=== PATIENT | female | born 1980 | race Caucasian/White ===

== ENCOUNTER 2017-04-03 11:43 | Observation (INO) | payer MEDICAID ==
[2017-04-03] VITALS (17 sets, daily range): BP systolic 94–121; BP diastolic 60–77; PULSE 65–92; RESP 16–18; TEMP 97.6–98; O2SAT 94–99
[~2017-04-03] VITALS: Ht 167.6 cm; Wt 78.0 kg
[2017-04-03] MEDS ORDERED: SODIUM CHLOR 0.9% 1000 ML INJ 1,000 ML IV SCH (11:49)
[2017-04-03] MEDS ORDERED: FAMO1TAB37 PO (11:50)
[2017-04-03] MEDS ORDERED: PANTOPRAZOLE SODIUM 40 MG VIAL IVP ONE (12:00)
[2017-04-03] MEDS ORDERED: SODIUM CHLORIDE 0.9% FLUSH 10 ML FLUSH IV FLUSH PRN ×2 (12:00→15:30)
[2017-04-03] MEDS ORDERED: SODIUM CHLOR 0.9% 1000 ML INJ 1,000 ML IV ONE ×2 (12:00→13:30)
[2017-04-03] MEDS ORDERED: FAMOTIDINE 20 MG/2 ML VIAL IV PUSH ONE (12:00)
[2017-04-03] MEDS ORDERED: ONDANSETRON HCL 4 MG/2 ML VIAL IVP ONE (12:00)
[2017-04-03] MEDS ORDERED: MORPHINE SULFATE 4 MG/ML INJ IV PUSH ONE ×2 (12:00→13:30)
[2017-04-03 12:05] LABS: AUTOMATED NEUTROPHIL # 4.6 TH/MM3 (1.8-7.7); BASOPHIL % 0.5 % (0.0-2.0); EOSINOPHIL # 0.1 TH/MM3 (0-0.4); EOSINOPHIL % 0.9 % (0.0-4.0); HEMATOCRIT 41.5 % (35.0-46.0); HEMO FLAGS DIFF FINAL; LYMPH % 34.4 % (9.0-44.0); LYMPHOCYTE # 2.8 TH/MM3 (1.0-4.8); MEAN CELL VOLUME 91.8 FL (80.0-100.0); MEAN CORPUSCULAR HEMOGLOBIN 30.6 PG (27.0-34.0); MEAN CORPUSCULAR HGB CONC 33.4 % (32.0-36.0); MONO % 6.8 % (0.0-8.0); NEUT % 57.4 % (16.0-70.0); PLATELET COUNT 287 TH/MM3 (150-450); RED BLOOD COUNT 4.53 MIL/MM3 (4.00-5.30); WHITE BLOOD COUNT 8.1 TH/MM3 (4.0-11.0)
[2017-04-03 12:24] LABS: ALT (GPT) 31 U/L (10-53); ANION GAP 8 MEQ/L (5-15); APTT (PATIENT) 28.8 SEC (24.3-30.1); AST (GOT) 18 U/L (15-37); BLOOD UREA NITROGEN 16 MG/DL (7-18); CHLORIDE 108 MEQ/L (98-107); GLOMERULAR FILTRATION RATE 74 ML/MIN (>89); MAGNESIUM 2.3 MG/DL (1.5-2.5); POTASSIUM 3.8 MEQ/L (3.5-5.1); PROTHROMBIN TIME - PATIENT 11.1 SEC (9.8-11.6); SODIUM (NA) 140 MEQ/L (136-145)
[2017-04-03 12:29] LABS: ALKALINE PHOSPHATASE 72 U/L (45-117); CREATINE KINASE 112 U/L (26-192); TOTAL BILIRUBIN ADULT 0.2 MG/DL (0.2-1.0)
[2017-04-03] MEDS ORDERED: IOHEXOL 350 MG/ML 10 ML VIAL (for RAD DIAG) IVCONTRAST ONE (12:31)
[2017-04-03 12:41] LABS: CKMB 1.3 NG/ML (0.5-3.6)
--- NOTE | 2017-04-03 12:41 | RADRPT ---
EXAM DATE/TIME: 04/03/2017 12:16 [facility] COMPARISON: No previous studies available for comparison. INDICATIONS : Chest pain. MEDICAL HISTORY : None. SURGICAL HISTORY : None. ENCOUNTER: Initial ACUITY: 1 day PAIN SCORE: 8/10 LOCATION: Bilateral chest FINDINGS: A single view of the chest demonstrates the lungs to be symmetrically aerated without evidence of mas s, infiltrate or effusion. The cardiomediastinal contours are unremarkable. Osseous structures are intact. CONCLUSION: No acute disease. Enrrique Goncalves MD on April 03, 2017 at 12:38 Board Certified Radiologist. This report was verified electronically.
--- NOTE | 2017-04-03 13:02 | PD ---
HPI Chief Complaint: Chest Pain Time Seen by Provider: 11:48 Travel History International Travel<30 days: No Contact w/Intl Traveler<30days: No Traveled to known affect area: No History of Present Illness HPI Patient is a 36year-old female who presents to emergency room complaints of chest pain. Patient reports that chest began while at work today, reports that she initially that the chest pain was related to GERD, she did take a Pepcid without any relief of symptoms. Reports that shortly thereafter, patient began to have pains to her left chest which radiates to her left neck and down her left shoulder. Patient became tachycardic, dizzy, and short of breath. Patient was brought down to the ER for evaluation. PFSH Past Medical History Diminished Hearing: No Gastrointestinal Disorders: Yes GERD: Yes Kidney Stones: Yes Tetanus Vaccination: > 5 Years Influenza Vaccination: Yes ?: Not LMP: 03/27/17 : 3 Para: 2 Past Surgical History Section: Yes (X 1) Gynecologic Surgery: Yes (C- SECTION) Social History Alcohol Use: Yes (RARE) Tobacco Use: Yes Substance Use: No (PT DENIES ) Allergies-Medications (Allergen,Severity, Reaction): Coded Allergies: Penicillins (Verified Allergy, Intermediate, Hives, 04/03/17) erythromycin base (Verified Allergy, Unknown, HIVES, 04/03/17) hydromorphone (Verified Adverse Reaction, Severe, Nausea/Vomiting, ) Reported Meds & Prescriptions Reported Meds & Active Scripts Active Reported Pepcid (Famotidine) 20 Mg Tab 20 Mg PO DAILY Review of Systems General / Constitutional: No: Fever Eyes: No: Visual changes HENT: No: Headaches Cardiovascular: Positive: Chest Pain or Discomfort, Tachycardia Respiratory: Positive: Shortness of Breath Gastrointestinal: No: Abdominal Pain Genitourinary: No: Dysuria Musculoskeletal: No: Pain Skin: No Rash Neurologic: No: Weakness Psychiatric: No: Depression Endocrine: No: Polydipsia Hematologic/Lymphatic: No: Easy Bruising Physical Exam Narrative GENERAL: moderate distress SKIN: Focused skin assessment warm/dry. HEAD: Atraumatic. Normocephalic. EYES: Pupils equal and round. No scleral icterus. No injection or drainage. ENT: No nasal bleeding or discharge. Mucous membranes pink and moist. NECK: Trachea midline. No JVD. CARDIOVASCULAR: Tachycardia. No murmur appreciated. RESPIRATORY: No accessory muscle use. Clear to auscultation. Breath sounds equal bilaterally. GASTROINTESTINAL: Abdomen soft, non-tender, nondistended. Hepatic and splenic margins not palpable. MUSCULOSKELETAL: No obvious deformities. No clubbing. No cyanosis. No edema. NEUROLOGICAL: Awake and alert. No obvious cranial nerve deficits. Motor grossly within normal limits. Normal speech. PSYCHIATRIC: Anxious mood and affect; insight and judgment normal. Data Data Last Documented VS Vital Signs Date Time Temp Pulse Resp B/P (MAP) Pulse Ox O2 Delivery O2 Flow Rate FiO2 04/03/17 12:44 78 16 100/68 (79) 99 Room Air 04/03/17 11:46 97.8 Orders Orders Electrocardiogram (04/03/17 11:48) Ckmb (Isoenzyme) Profile (04/03/17 11:48) Complete Blood Count With Diff (04/03/17 11:48) Comprehensive Metabolic Panel (04/03/17 11:48) Magnesium (Mg) (04/03/17 11:48) Prothrombin Time / Inr (Pt) (04/03/17 11:48) Act Partial Throm Time (Ptt) (04/03/17 11:48) Troponin I (04/03/17 11:48) Lipase (04/03/17 11:48) Chest, Single Ap (04/03/17 11:48) Ecg Monitoring (04/03/17 11:48) Bilateral Bp Monitoring (04/03/17 11:48) Iv Access Insert/Monitor (04/03/17 11:48) Oximetry (04/03/17 11:48) Cta Thor Abd Aorta W Iv C W3d (04/03/17 11:48) Thyroid Stimulating Hormone (04/03/17 11:49) Sodium Chlor 0.9% 1000 Ml Inj (Ns 1000 M (04/03/17 12:00) Morphine Inj (Morphine Inj) (04/03/17 12:00) Ondansetron Inj (Zofran Inj) (04/03/17 12:00) Pantoprazole Inj (Protonix Inj) (04/03/17 12:00) Sodium Chlor 0.9% 1000 Ml Inj (Ns 1000 M (04/03/17 11:49) Sodium Chloride 0.9% Flush (Ns Flush) (04/03/17 12:00) Famotidine Inj (Pepcid Inj) (04/03/17 12:00) Ed Urine Pregnancytest Poc (04/03/17 11:53) I-Stat Creatinine (04/03/17 11:54) CKMB (04/03/17 11:53) CKMB% (04/03/17 11:53) Iohexol 350 Inj (Omnipaque 350 Inj) (04/03/17 12:31) Electrocardiogram (04/03/17 ) Sodium Chlor 0.9% 1000 Ml Inj (Ns 1000 M (04/03/17 13:30) Morphine Inj (Morphine Inj) (04/03/17 13:30) Admit Order (Ed Use Only) (04/03/17 13:18) Labs Laboratory Tests Test 04/03/17 11:53 White Blood Count 8.1 TH/MM3 Red Blood Count 4.53 MIL/MM3 Hemoglobin 13.9 GM/DL Hematocrit 41.5 % Mean Corpuscular Volume 91.8 FL Mean Corpuscular Hemoglobin 30.6 PG Mean Corpuscular Hemoglobin Concent 33.4 % Red Cell Distribution Width 14.0 % Platelet Count 287 TH/MM3 Mean Platelet Volume 9.0 FL Neutrophils (%) (Auto) 57.4 % Lymphocytes (%) (Auto) 34.4 % Monocytes (%) (Auto) 6.8 % Eosinophils (%) (Auto) 0.9 % Basophils (%) (Auto) 0.5 % Neutrophils # (Auto) 4.6 TH/MM3 Lymphocytes # (Auto) 2.8 TH/MM3 Monocytes # (Auto) 0.6 TH/MM3 Eosinophils # (Auto) 0.1 TH/MM3 Basophils # (Auto) 0.0 TH/MM3 CBC Comment DIFF FINAL Differential Comment Prothrombin Time 11.1 SEC Prothromb Time International Ratio 1.0 RATIO Activated Partial Thromboplast Time 28.8 SEC Blood Urea Nitrogen 16 MG/DL Creatinine 0.86 MG/DL Random Glucose 72 MG/DL Total Protein 7.5 GM/DL Albumin 4.0 GM/DL Calcium Level 9.0 MG/DL Magnesium Level 2.3 MG/DL Alkaline Phosphatase 72 U/L Aspartate Amino Transf (AST/SGOT) 18 U/L Alanine Aminotransferase (ALT/SGPT) 31 U/L Total Bilirubin 0.2 MG/DL Sodium Level 140 MEQ/L Potassium Level 3.8 MEQ/L Chloride Level 108 MEQ/L Carbon Dioxide Level 24.0 MEQ/L Anion Gap 8 MEQ/L Estimat Glomerular Filtration Rate 74 ML/MIN Total Creatine Kinase 112 U/L Creatine Kinase MB 1.3 NG/ML Troponin I LESS THAN 0.02 NG/ML Lipase 104 U/L MDM Medical Decision Making Medical Screen Exam Complete: Yes Emergency Medical Condition: Yes Medical Record Reviewed: Yes Interpretation(s) EKG at 1149: NSR at 79bpm, qt/qtc: 345/379, no acute st or t wave changes Vital Signs Date Time Temp Pulse Resp B/P (MAP) Pulse Ox O2 Delivery O2 Flow Rate FiO2 04/03/17 12:44 78 16 100/68 (79) 99 Room Air 04/03/17 12:09 17 04/03/17 12:00 92 18 116/71 (86) 99 Room Air 112/69 (83) 04/03/17 11:50 18 99 Room Air 04/03/17 11:47 89 18 99 Room Air 04/03/17 11:46 97.8 92 17 116/71 (86) 99 Differential Diagnosis Differential includes ACS, arrhythmia, aortic dissection, PE, GERD, electrolyte abnormality Narrative Course Patient is a 36-year-old female who presents to emergency room complaints of chest pain. 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 Patient reports that she is having a pressure like pain to her left chest which radiates her left jaw and to her left shoulder. Patient was immediately placed on a awake overnight monitor upon arrival to the emergency room. An EKG was obtained which showed no acute ST or T-wave changes. Lab work including cardiac enzymes , CBC, CMP ordered, x-ray of chest ordered. CTA ordered to rule out dissection Patient did receive a full dose of aspirin as well as 1 SL nitro while on the floor. She reports relief of symptoms with nitro but still has some pain to her left shoulder. IV morphine ordered for pain relief. Patient re-evaluated, patient with relief of pain after IV morphine. Vital Signs Date Time Temp Pulse Resp B/P (MAP) Pulse Ox O2 Delivery O2 Flow Rate FiO2 04/03/17 12:44 78 16 100/68 (79) 99 Room Air 04/03/17 12:09 17 04/03/17 12:00 92 18 116/71 (86) 99 Room Air 112/69 (83) 04/03/17 11:50 18 99 Room Air 04/03/17 11:47 89 18 99 Room Air 04/03/17 11:46 97.8 92 17 116/71 (86) 99 Laboratory Tests Test 04/03/17 11:53 White Blood Count 8.1 TH/MM3 (4.0-11.0) Red Blood Count 4.53 MIL/MM3 (4.00-5.30) Hemoglobin 13.9 GM/DL (11.6-15.3) Hematocrit 41.5 % (35.0-46.0) Mean Corpuscular Volume 91.8 FL (80.0-100.0) Mean Corpuscular Hemoglobin 30.6 PG (27.0-34.0) Mean Corpuscular Hemoglobin Concent 33.4 % (32.0-36.0) Red Cell Distribution Width 14.0 % (11.6-17.2) Platelet Count 287 TH/MM3 (150-450) Mean Platelet Volume 9.0 FL (7.0-11.0) Neutrophils (%) (Auto) 57.4 % (16.0-70.0) Lymphocytes (%) (Auto) 34.4 % (9.0-44.0) Monocytes (%) (Auto) 6.8 % (0.0-8.0) Eosinophils (%) (Auto) 0.9 % (0.0-4.0) Basophils (%) (Auto) 0.5 % (0.0-2.0) Neutrophils # (Auto) 4.6 TH/MM3 (1.8-7.7) Lymphocytes # (Auto) 2.8 TH/MM3 (1.0-4.8) Monocytes # (Auto) 0.6 TH/MM3 (0-0.9) Eosinophils # (Auto) 0.1 TH/MM3 (0-0.4) Basophils # (Auto) 0.0 TH/MM3 (0-0.2) CBC Comment DIFF FINAL Differential Comment Prothrombin Time 11.1 SEC (9.8-11.6) Prothromb Time International Ratio 1.0 RATIO Activated Partial Thromboplast Time 28.8 SEC (24.3-30.1) Blood Urea Nitrogen 16 MG/DL (7-18) Creatinine 0.86 MG/DL (0.50-1.00) Random Glucose 72 MG/DL (74-106) Total Protein 7.5 GM/DL (6.4-8.2) Albumin 4.0 GM/DL (3.4-5.0) Calcium Level 9.0 MG/DL (8.5-10.1) Magnesium Level 2.3 MG/DL (1.5-2.5) Alkaline Phosphatase 72 U/L (45-117) Aspartate Amino Transf (AST/SGOT) 18 U/L (15-37) Alanine Aminotransferase (ALT/SGPT) 31 U/L (10-53) Total Bilirubin 0.2 MG/DL (0.2-1.0) Sodium Level 140 MEQ/L (136-145) Potassium Level 3.8 MEQ/L (3.5-5.1) Chloride Level 108 MEQ/L (98-107) Carbon Dioxide Level 24.0 MEQ/L (21.0-32.0) Anion Gap 8 MEQ/L (5-15) Estimat Glomerular Filtration Rate 74 ML/MIN (>89) Total Creatine Kinase 112 U/L (26-192) Creatine Kinase MB 1.3 NG/ML (0.5-3.6) Troponin I LESS THAN 0.02 NG/ML Lipase 104 U/L (73-393) Last Impressions Chest X-Ray 04/03/17 1148 Signed Impressions: Service Date/Time: March 12:16 - CONCLUSION: No acute disease. Enrrique Goncalves MD Diagnosis Primary Impression: Chest pain Jo Bell DO Apr 03, 2017 13:02
--- NOTE | 2017-04-03 13:08 | RADRPT ---
EXAM DATE/TIME: 04/03/2017 12:21 [facility] COMPARISON: No previous studies available for comparison. INDICATIONS : Chest pain with dizziness. IV CONTRAST: 70 cc Omnipaque 350 (iohexol) IV RADIATION DOSE: 10.81 CTDIvol (mGy) MEDICAL HISTORY : None SURGICAL HISTORY : None. ENCOUNTER: Initial ACUITY: 1 day PAIN SCALE: 5/10 LOCATION: chest TECHNIQUE: Volumetric scanning was performed using a multi-row detector CT scanner. The data was post processed with a variety of visualization algorithms including full volume maximum intensity projection, multi -planar sliding thin slab reformation, curved planar reformation, and surface rendering techniques. Using automated exposure control and adjustment of the mA and/or kV according to patient size, radiat ion dose was kept as low as reasonably achievable to obtain optimal diagnostic quality images. DICOM format image data is available electronically for review and comparison. FINDINGS: LUNGS: There is no consolidation or pneumothorax. No concerning pulmonary nodule is visualized. No pleural fluid is present. MEDIASTINUM: Densely calcified right hilar nodes. No abnormally enlarged lymph nodes by CT criteria. No axillary o r hilar abnormalities are identified. The pulmonary arteries are not sufficiently opacified but appea r patent very centrally. ABDOMEN: Evaluation is limited due to arterial phase technique. The liver and spleen are free of focal defects . The gallbladder and pancreas demonstrate no abnormality. The adrenal glands are normal. The kidneys demonstrate no evidence of solid renal mass or hydronephrosis. No free fluid or abdominal masses are identified. No para-aortic adenopathy is seen. Mild sigmoid diverticulosis. Bowel otherwise appears grossly unremarkable. PELVIS: No evidence of free fluid or pelvic mass. No abnormally enlarged inguinal or retroperitoneal lymph no piyush are present. The bladder is unremarkable. Uterus and adnexa are within normal limits given patien t's age. THORACIC AORTA: The thoracic aortic root is normal with normal branching of the great vessels. There is no evidence of aneurysm or dissection. ABDOMINAL AORTA: The aorta is normal in caliber without aneurysm or dissection. The renal arteries are patent bilater ally. The proximal celiac and superior mesenteric arteries are patent and normal in diameter. PELVIC VESSELS: The internal iliac and external iliac vessels are patent without aneurysm or stenosis. CONCLUSION: 1. Unremarkable CTA examination without evidence for aortic aneurysm or dissection as questioned. 2. The very central pulmonary arteries are patent. Segmental branches are inadequately opacified for evaluation. 3. Otherwise, no acute findings to explain patient's symptoms. Cornell Plasencia MD on April 03, 2017 at 13:00 Board Certified Radiologist. This report was verified electronically.
[2017-04-03] MEDS ORDERED: KETOROLAC TROMETHAMINE 30 MG/ML (IVP) VIAL IV PUSH ONE (13:45)
--- NOTE | 2017-04-03 14:13 | HHI.HP ---
HPI Service Family Medicine Primary Care Physician Unknown Admission Diagnosis chest pain Diagnoses: International Travel<30 Days: No Contact w/Intl Traveler<30days: No Known Affected Area: No History of Present Illness 36 y/o F w/hx of heart burn presenting with chest pain. Reports that she has a hx of GERD that constantly bothers her. Has been having a pressure/left-sided chest pain for the last 3 weeks. Did not occur at a particular time of day or setting. Started having chest pain this AM and thought she was having normal heartburn this AM, so she took Pepcid for relief but it did not work and an hour later, reports she a pain described as pressure in her left chest that radiates to left shoulder and neck associated with dizziness, SOB, and diaphoresis. Took nitro sublingual, had a little relief but experienced a headache instantaneously. Patient works in the [employer] and quickly came to the ER for work-up. Has never had a chest pain similar to this episode in the past. Currently feeling pressure, states that morphine takes edge off. Patient was questioned about hydromorphone allergy ; responded that it causes intractable vomiting. States she tolerates morphine well. Does not have a regular doctor. (Miranda Gary MD R1) Review of Systems Constitutional: COMPLAINS OF: Fatigue, Dizziness, DENIES: Diaphoretic episodes , Change in appetite Endocrine: DENIES: Heat/cold intolerance, Polyuria Eyes: DENIES: Vision loss, Photosensitivity Ears, nose, mouth, throat: DENIES: Tinnitus, Hearing loss Respiratory: DENIES: Cough, Shortness of breath Cardiovascular: DENIES: Palpitations, Dyspnea on Exertion Gastrointestinal: COMPLAINS OF: Abdominal pain, Constipation, DENIES: Diarrhea Genitourinary: DENIES: Urinary frequency, Urgency Musculoskeletal: DENIES: Muscle aches, Stiffness Integumentary: DENIES: Abnormal pigmentation, Rash Hematologic/lymphatic: DENIES: Lymphadenopathy Immunologic/allergic: DENIES: Urticaria Neurologic: DENIES: Headache, Speech Problems Psychiatric: DENIES: Mood changes (Miranda Gary MD R1) Past Family Social History Past Medical History Heartburn Past Surgical History x1 - 2015 (Miranda Gary MD R1) Allergies: Coded Allergies: Penicillins (Verified Allergy, Intermediate, Hives, 04/03/17) erythromycin base (Verified Allergy, Unknown, HIVES, 04/03/17) hydromorphone (Verified Adverse Reaction, Severe, Nausea/Vomiting, ) Family History Mom: RV enlargement, smoker, obesity Dad : Crohn's disease, CABG x 5 Social History Smokes 20 pack years, ETOH a couple times/month, no illicit/recreational drug use (Miranda Gary MD R1) Physical Exam Vital Signs Vital Signs Date Time Temp Pulse Resp B/P (MAP) Pulse Ox O2 Delivery O2 Flow Rate FiO2 04/03/17 13:35 17 04/03/17 13:30 97.8 78 16 105/62 (76) 99 04/03/17 12:44 78 16 100/68 (79) 99 Room Air 04/03/17 12:09 17 04/03/17 12:00 92 18 116/71 (86) 99 Room Air 112/69 (83) 04/03/17 11:50 18 99 Room Air 04/03/17 11:47 89 18 99 Room Air 04/03/17 11:46 97.8 92 17 116/71 (86) 99 Physical Exam GENERAL: This is a well-nourished, well-developed patient, in no apparent distress. SKIN: No rashes, ecchymoses or lesions. Cool and dry. HEAD: Atraumatic. Normocephalic. EYES: Pupils equal round and reactive. Extraocular motions intact. ENT: Throat without erythema, tonsillar hypertrophy or exudate. Uvula midline. Airway patent. NECK: Trachea midline. No JVD or lymphadenopathy. CARDIOVASCULAR: Regular rate and rhythm without murmurs, gallops, or rubs. RESPIRATORY: Clear to auscultation. Breath sounds equal bilaterally. GASTROINTESTINAL: Abdomen soft, non-tender except for lower pelvis (patient attributes to ovulation), nondistended. MUSCULOSKELETAL: Extremities without clubbing, cyanosis, or edema. No joint tenderness, effusion, or edema noted. No calf tenderness. NEUROLOGICAL: Awake and alert. Motor and sensory grossly within normal limits. Normal speech. Laboratory Laboratory Tests Test 04/03/17 11:53 White Blood Count 8.1 Red Blood Count 4.53 Hemoglobin 13.9 Hematocrit 41.5 Mean Corpuscular Volume 91.8 Mean Corpuscular Hemoglobin 30.6 Mean Corpuscular Hemoglobin Concent 33.4 Red Cell Distribution Width 14.0 Platelet Count 287 Mean Platelet Volume 9.0 Neutrophils (%) (Auto) 57.4 Lymphocytes (%) (Auto) 34.4 Monocytes (%) (Auto) 6.8 Eosinophils (%) (Auto) 0.9 Basophils (%) (Auto) 0.5 Neutrophils # (Auto) 4.6 Lymphocytes # (Auto) 2.8 Monocytes # (Auto) 0.6 Eosinophils # (Auto) 0.1 Basophils # (Auto) 0.0 CBC Comment DIFF FINAL Differential Comment Prothrombin Time 11.1 Prothromb Time International Ratio 1.0 Activated Partial Thromboplast Time 28.8 Blood Urea Nitrogen 16 Creatinine 0.86 Random Glucose 72 Total Protein 7.5 Albumin 4.0 Calcium Level 9.0 Magnesium Level 2.3 Alkaline Phosphatase 72 Aspartate Amino Transf (AST/SGOT) 18 Alanine Aminotransferase (ALT/SGPT) 31 Total Bilirubin 0.2 Sodium Level 140 Potassium Level 3.8 Chloride Level 108 Carbon Dioxide Level 24.0 Anion Gap 8 Estimat Glomerular Filtration Rate 74 Total Creatine Kinase 112 Creatine Kinase MB 1.3 Troponin I LESS THAN 0.02 Lipase 104 (Miranda Gary MD R1) Result Diagram: 04/03/17 1153 04/03/17 1153 Caprini VTE Risk Assessment Caprini VTE Risk Assessment: No/Low Risk (score <= 1) Caprini Risk Assessment Model Point Value = 1 Point Value = 2 Point Value = 3 Point Value = 5 Age 41-60 Minor surgery BMI > 25 kg/m2 Swollen legs Varicose veins or History of unexplained or recurrent spontaneous Oral contraceptives or hormone replacement Sepsis (< 1 month) Serious lung disease, including pneumonia (< 1 month) Abnormal pulmonary function Acute myocardial infarction Congestive heart failure (< 1 month) History of inflammatory bowel disease Medical patient at bed rest Age 61-74 Arthroscopic surgery Major open surgery (> 45 min) Laparoscopic surgery (> 45 min) Malignancy Confined to bed (> 72 hours) Immobilizing plaster cast Central venous access Age >= 75 History of VTE Family history of VTE Factor V Leiden Prothrombin [id number] Lupus anticoagulant Anticardiolipin antibodies Elevated serum homocysteine Heparin-induced thrombocytopenia Other congenital or acquired thrombophilia Stroke (< 1 month) Elective arthroplasty Hip, pelvis, or leg fracture Acute spinal cord injury (< 1 month) Prophylaxis Regimen Total Risk Factor Score Risk Level Prophylaxis Regimen 0-1 Low Early ambulation 2 Moderate Order ONE of the following: *Sequential Compression Device (SCD) *Heparin 5000 units SQ BID 3-4 Higher Order ONE of the following medications: *Heparin 5000 units SQ TID *Enoxaparin/Lovenox 40 mg SQ daily (WT < 150 kg, CrCl > 30 mL/min) *Enoxaparin/Lovenox 30 mg SQ daily (WT < 150 kg, CrCl > 10-29 mL/min) *Enoxaparin/Lovenox 30 mg SQ BID (WT < 150 kg, CrCl > 30 mL/min) AND/OR *Sequential Compression Device (SCD) 5 or more Highest Order ONE of the following medications: *Heparin 5000 units SQ TID (Preferred with Epidurals) *Enoxaparin/Lovenox 40 mg SQ daily (WT < 150 kg, CrCl > 30 mL/min) *Enoxaparin/Lovenox 30 mg SQ daily (WT < 150 kg, CrCl > 10-29 mL/min) *Enoxaparin/Lovenox 30 mg SQ BID (WT < 150 kg, CrCl > 30 mL/min) AND *Sequential Compression Device (SCD) (Miranda Gary MD R1) Assessment and Plan Assessment and Plan Patient is a 36 y/o F w/hx of GERD presenting with chest pain. EKG x2 wnl, troponins negative, CTA aorta was not able to accurately capture segmental arteries of aorta to r/o thrombus. Not likely [place] or aortic dissection. Will observe her on cardiac tele overnight and r/o PE. Code Status DNI, ok with ACLS protocol Discussed Condition With Dr. Mcfadden (Miranda Gary MD R1) Attending Attestation THIS CASE WAS DISCUSSED WITH THE RESIDENT PHYSICIAN. I HAVE REVIEWED THE RECORD AND AGREE WITH THE ABOVE NOTE AND PLAN OF CARE WAS DISCUSSED. I HAVE AUTHORIZED THE ORDER FOR PLACEMENT IN OUT-PATIENT OBSERVATION STATUS. (Angela Rooney MD) Problem List: (1) Chest pain ICD Codes: R07.9 - Chest pain, unspecified Status: Acute Plan: Troponins neg, EKG x2 nl, -order CKMB - D-dimer to r/o PE - cardiac tele - trend ECGs today - morphine IV as needed for pain - ASA chew - HgbA1c, lipid profile (2) Heartburn ICD Codes: R12 - Heartburn Plan: Protonix 40 mg PO (3) FEN Plan: Fluids: NS IVF Nutrition: NPO Electrolytes: supp as needed DVT prophy: Lovenox and SCDs GI prophy: Protonix 40 mg PO (Miranda Gary MD R1) Miranda Gary MD R1 Apr 03, 2017 14:13 Angela Rooney MD Apr 03, 2017 17:34
[2017-04-03] MEDS: SODIUM CHLOR 0.9% 1000 ML INJ 1,000 ML IV SCH ×2 (14:20→22:40)
[2017-04-03] MEDS ORDERED: ACETAMINOPHEN 325 MG TAB PO PRN (14:30)
[2017-04-03] MEDS ORDERED: DEXTROSE 50% IN WATER 50 ML VIAL(D50) IV PUSH PRN (15:15)
[2017-04-03] MEDS ORDERED: ONDANSETRON HCL 4 MG/2 ML VIAL IVP PRN (15:30)
[2017-04-03] MEDS ORDERED: NALOXONE HCL 0.4 MG/ML AMP IV PUSH PRN (15:30)
[2017-04-03] MEDS ORDERED: MORPHINE SULFATE 4 MG/ML INJ IV PUSH PRN (16:00)
[2017-04-03] MEDS ORDERED: ENOXAPARIN SODIUM 40 MG/0.4 ML SYRINGE SQ SCH (16:00)
[2017-04-03 17:35] LABS: CREATINE KINASE 90 U/L (26-192)
[2017-04-03] MEDS: SODIUM CHLORIDE 0.9% FLUSH 10 ML FLUSH IV FLUSH SCH (21:00)
--- NOTE | 2017-04-03 21:21 | MB ---
cc: KEV HATHC MD DATE OF CONSULTATION 04/03/17 INDICATION Chest pain. 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 She was in her usual state of health until yesterday morning when she started developing her heartburn type symptoms. She does have heartburn on a regular basis, takes Pepcid at home. Earlier today, it became quite uncomfortable. She developed this substernal chest pressure associated with it. It actually got so bad that it radiated towards her jaw and her left shoulder arm. She was noted to be somewhat diaphoretic actually by the other nurses and she was moved into one of the room. She was given Pepcid and then transferred down to the emergency department. Also, she was given nitro then transferred down to the emergency department. Nitroglycerin started to relieve some of the discomfort. When she got down there they had done a CAT scan of the chest which was relatively unremarkable, gave her some IV fluids. Her symptoms are still somewhat present. She has this maybe 2/10 substernal pain. Electrocardiogram has been unremarkable. Initial troponin is negative. We are consulted for further recommendations. PAST MEDICAL HISTORY 1. Gastroesophageal reflux disease 2. . ALLERGIES PENICILLIN ERYTHROMYCIN HYDROMORPHONE FAMILY HISTORY Denies any family history of early coronary disease or sudden cardiac . SOCIAL HISTORY Smokes 20 pack years. Alcohol use a couple times a month. Denies illicit drug use. REVIEW OF SYSTEMS 12-point review of system was performed, negative unless otherwise noted in history of present illness. PHYSICAL EXAMINATION VITAL SIGNS: Pulse 91, blood pressure 102/75 mmHg. GENERAL: Alert and oriented x3 in no distress. HEENT: Pupils reactive to light and accommodation, extraocular movements are intact. No elevation in jugular venous distension. No thyromegaly or lymphadenopathy. No carotid bruits. LUNGS: Clear to auscultation bilaterally. CARDIAC: Regular rate and rhythm without murmurs, rubs or gallops. ABDOMEN: Nontender, nondistended. Good bowel sounds. No hepatosplenomegaly. EXTREMITIES: No clubbing, cyanosis or edema. Good peripheral pulses. NEUROLOGIC: Cranial nerves intact. Motor and sensory grossly intact. LABORATORY DATA WBC 8.1, hemoglobin is 13.9, platelet count 287, INR is one. Sodium 140, potassium 3.8, BUN 16, creatinine 2.86. Troponins negative x2. CARDIOLOGY STUDIES Electrocardiogram is sinus rhythm, no ischemic changes. ASSESSMENT 1. Chest pain. 2. History of gastroesophageal reflux disease. PLAN She had kind of initial insidious onset followed by worsening substernal pain. Symptoms sound pretty consistent with esophageal spasm and/or coronary spasm. Likely given that she works right on the cardiac intensive care unit, immediate electrocardiogram was obtained which showed no ST-segment deviation. This with ongoing symptoms would suggest not coronary spasm. Given her age and lack of risk factors it is clearly not obstructive coronary disease. She had a CT of the chest which did not show any evidence for dissection or pulmonary embolism. She did have some relief with nitroglycerin. We will continue to trend troponin. If it comes back negative, I think we can feel fairly sure this is GI in etiology, then she may consider an outpatient EGD. MD DRE Avila/ /6:35 PM /8:56 PM
[2017-04-03 23:46] LABS: HDL CHOLESTEROL 30.1 MG/DL (40.0-60.0); LDL CHOLESTEROL 58 MG/DL (0-99)
[2017-04-03 23:56] LABS: CREATINE KINASE 85 U/L (26-192)
[2017-04-04] VITALS (9 sets, daily range): BP systolic 103; BP diastolic 63; PULSE 65–78; RESP 18; TEMP 98.2; O2SAT 98
[2017-04-04] MEDS: SODIUM CHLOR 0.9% 1000 ML INJ 1,000 ML IV SCH (05:17)
[2017-04-04 06:53] LABS: AUTOMATED NEUTROPHIL # 4.1 TH/MM3 (1.8-7.7); BASOPHIL % 0.4 % (0.0-2.0); EOSINOPHIL # 0.2 TH/MM3 (0-0.4); EOSINOPHIL % 2.4 % (0.0-4.0); HEMATOCRIT 37.1 % (35.0-46.0); HEMO FLAGS DIFF FINAL; LYMPH % 38.9 % (9.0-44.0); LYMPHOCYTE # 3.1 TH/MM3 (1.0-4.8); MEAN CELL VOLUME 91.7 FL (80.0-100.0); MEAN CORPUSCULAR HEMOGLOBIN 31.1 PG (27.0-34.0); MEAN CORPUSCULAR HGB CONC 33.9 % (32.0-36.0); MONO % 6.6 % (0.0-8.0); NEUT % 51.7 % (16.0-70.0); PLATELET COUNT 231 TH/MM3 (150-450); RED BLOOD COUNT 4.04 MIL/MM3 (4.00-5.30); RED CELL DISTRIBUTION WIDTH 14.2 % (11.6-17.2); WHITE BLOOD COUNT 7.9 TH/MM3 (4.0-11.0)
[2017-04-04 07:36] LABS: POTASSIUM 3.6 MEQ/L (3.5-5.1)
[2017-04-04] MEDS: SODIUM CHLORIDE 0.9% FLUSH 10 ML FLUSH IV FLUSH SCH (07:47)
--- NOTE | 2017-04-04 08:26 | HHI.FPPN ---
Problem Problem List: (1) Chest pain (2) Heartburn Subjective Subjective 36 y/o F w/hx of heart burn presenting with chest pain to the ED last night. History significant for GERD and tobacco. Started having chest pain the morning of admission and thought she was having normal heartburn, took Pepcid for relief but it did not work and an hour later, reports she a pain described as pressure in her left chest that radiated to left shoulder and neck associated with dizziness, SOB, and diaphoresis. Took nitro sublingual, had a little relief but experienced a headache instantaneously. Overnight labs -- troponin normal and EKG good -- cards evaluated the patient and did not feel this was cardiovascular in nature. Pt with minimal risk for CAD. Pt with h/o GERD and was started on PPI on admission and she feels like this could have been an esophageal spasm and all her symptoms resolved overnight. Review of Systems Constitutional: COMPLAINS OF: Fatigue, Dizziness, DENIES: Diaphoretic episodes , Change in appetite Endocrine: DENIES: Heat/cold intolerance, Polyuria Eyes: DENIES: Vision loss, Photosensitivity Ears, nose, mouth, throat: DENIES: Tinnitus, Hearing loss Respiratory: DENIES: Cough, Shortness of breath Cardiovascular: DENIES: Palpitations, Dyspnea on Exertion Gastrointestinal: COMPLAINS OF: Abdominal pain, Constipation, DENIES: Diarrhea Genitourinary: DENIES: Urinary frequency, Urgency Musculoskeletal: DENIES: Muscle aches, Stiffness Integumentary: DENIES: Abnormal pigmentation, Rash Hematologic/lymphatic: DENIES: Lymphadenopathy Immunologic/allergic: DENIES: Urticaria Neurologic: DENIES: Headache, Speech Problems Psychiatric: DENIES: Mood changes Past Family Social History Past Medical History Heartburn Past Surgical History x1 - 2015 Allergies: Coded Allergies: Penicillins (Verified Allergy, Intermediate, Hives, 04/03/17) erythromycin base (Verified Allergy, Unknown, HIVES, 04/03/17) hydromorphone (Verified Adverse Reaction, Severe, Nausea/Vomiting, ) Family History Mom: RV enlargement, smoker, obesity Dad : Crohn's disease, CABG x 5 Social History Smokes 20 pack years, ETOH a couple times/month, no illicit/recreational drug use Hospital Objective Objective Laboratory Tests - Abnormals Test 04/03/17 11:53 04/03/17 16:12 04/03/17 22:39 04/04/17 05:35 Random Glucose 72 MG/DL Chloride Level 108 MEQ/L 111 MEQ/L Estimat Glomerular Filtration Rate 74 ML/MIN 79 ML/MIN Troponin I LESS THAN 0.02 NG/ML LESS THAN 0.02 NG/ML LESS THAN 0.02 NG/ML Cholesterol Level 112 MG/DL HDL Cholesterol 30.1 MG/DL Calcium Level 7.5 MG/DL Vital Signs 04/03/17 04/03/17 04/03/17 04/03/17 11:46 11:47 11:50 12:00 Temp 97.8 Pulse 92 89 92 Resp 17 18 18 18 B/P (MAP) 116/71 (86) 116/71 (86) 112/69 (83) Pulse Ox 99 99 99 99 O2 Delivery Room Air Room Air Room Air 04/03/17 04/03/17 04/03/17 04/03/17 12:09 12:44 13:30 13:35 Temp 97.8 Pulse 78 78 Resp 17 B/P (MAP) 100/68 (79) 105/62 (76) Pulse Ox 99 99 O2 Delivery Room Air 04/03/17 04/03/17 04/03/17 04/03/17 14:25 14:31 15:06 15:30 Temp 97.9 Pulse 76 74 77 Resp 16 16 B/P (MAP) 109/77 (88) 102/75 (84) Pulse Ox 100 99 99 FiO2 21 04/03/17 04/03/17 04/03/17 04/03/17 16:01 17:03 18:01 20:00 Pulse 80 82 91 80 04/03/17 04/03/17 04/03/17 04/03/17 20:00 21:00 22:00 23:00 Temp 97.6 Pulse 84 71 65 70 Resp 18 B/P (MAP) 121/75 (90) Pulse Ox 98 04/03/17 04/03/17 04/04/17 04/04/17 23:00 23:49 00:00 01:00 Temp 98.0 Pulse 79 65 68 Resp 18 B/P (MAP) 94/60 (71) Pulse Ox 98 94 04/04/17 04/04/17 04/04/17 04/04/17 02:00 03:00 03:13 04:00 Pulse 78 70 73 72 Resp 18 04/04/17 04/04/17 05:00 06:00 Pulse 70 67 Physical exam O. CONSTITUTIONAL/GEN: normally nourished, in NAD. EYES: conjunctiva normal, PERRLA, EOMI. ENT: Mouth and pharynx normal. NECK: thyroid midline, carotids symmetrical. LUNGS: clear A-P, respiratory effort is normal. CARDIOVASCULAR: RR without murmur or gallop. No significant edema. GI/ABD: soft without masses, without organomegaly. : no CVA tenderness NEURO: No focal deficits. Gait is normal SKIN: color normal, no rashes noted. HEME/LYMPH: no bruising, petechia or significant adenopathy MUSC: back is normal in appearance. Extremities are normal in appearance. PSYCH/MENTAL STATUS: Alert and oriented x 3. Assessment Assessment: (1) Chest pain (2) Heartburn Assessment 36 year old female, smoker with h/o CP that does not appear to be cardiac in nature. IS doing well with resolution of her symptoms. Workup for cardiac chest pain was unrevealing PLAN PLAN 1. CP -- likely secondary to GI issues -- she was started on PPI and will continue this on d/c. Consider possible esophageal spasm. 2. GERD/GI -- continue PPI, rec lifestyle changes and fu with GI for further workup as outpatient. 3. Tobacco use -- counselled on quitting -- patient is precontemplative. DC today with fu with PCP and GI Patient was seen and dw the resident team -- Dr. Mcfadden, Dr. Gary, Dr. Cortes, Dr. Roxana Rooney,Angela Alegria MD Apr 04, 2017 08:26
--- NOTE | 2017-04-04 08:34 | PD.CARD.PN ---
Subjective Subjective Remarks no further CP no events Objective Medications Current Medications Medications (Trade) Dose Ordered Sig/Robert Route Start Time Stop Time Status Last Admin (NS Flush) 2 ml UNSCH PRN IV FLUSH 04/03/17 12:00 Sodium Chloride 1,000 ml @ 120 mls/hr Q8H20M IV 04/03/17 14:20 04/04/17 05:17 (NS Flush) 2 ml UNSCH PRN IV FLUSH 04/03/17 15:30 (NS Flush) 2 ml BID IV FLUSH 04/03/17 21:00 04/04/17 07:47 (Tylenol) 650 mg Q4H PRN PO 04/03/17 14:30 (Zofran Inj) 4 mg Q6H PRN IVP 04/03/17 15:30 04/03/17 17:06 (Lovenox Inj) 40 mg Q24H SQ 04/03/17 16:00 (Narcan Inj) 0.4 mg UNSCH PRN IV PUSH 04/03/17 15:30 (Protonix) 40 mg DAILY PO 04/04/17 09:00 04/04/17 07:47 (Morphine Inj) 4 mg Q3H PRN IV PUSH 04/03/17 16:00 04/03/17 17:06 (Aspirin Chew) 81 mg DAILY CHEW 04/04/17 09:00 04/04/17 07:47 (D50w (Vial) Inj) 50 ml UNSCH PRN IV PUSH 04/03/17 15:15 (Flu (Quadrivalent) Vaccine Inj) 0.5 ml ONCE ONCE IM 04/04/17 10:00 04/04/17 10:01 Vital Signs / I&O Vital Signs Date Time Temp Pulse Resp B/P (MAP) Pulse Ox O2 Delivery O2 Flow Rate FiO2 04/04/17 06:00 67 04/04/17 05:00 70 04/04/17 04:00 72 04/04/17 03:13 73 18 04/04/17 03:00 70 04/04/17 02:00 78 04/04/17 01:00 68 04/04/17 00:00 65 04/03/17 23:49 94 04/03/17 23:00 98.0 79 18 94/60 (71) 98 04/03/17 23:00 70 04/03/17 22:00 65 04/03/17 21:00 71 04/03/17 20:00 97.6 84 18 121/75 (90) 98 04/03/17 20:00 80 04/03/17 18:01 91 04/03/17 17:03 82 04/03/17 16:01 80 04/03/17 15:30 77 16 102/75 (84) 99 04/03/17 15:06 74 04/03/17 14:31 99 21 04/03/17 14:25 97.9 76 16 109/77 (88) 100 04/03/17 13:35 17 04/03/17 13:30 97.8 78 16 105/62 (76) 99 04/03/17 12:44 78 16 100/68 (79) 99 Room Air 04/03/17 12:09 17 04/03/17 12:00 92 18 116/71 (86) 99 Room Air 112/69 (83) 04/03/17 11:50 18 99 Room Air 04/03/17 11:47 89 18 99 Room Air 04/03/17 11:46 97.8 92 17 116/71 (86) 99 I/O 04/03/17 04/03/17 04/03/17 04/04/17 04/04/17 04/04/17 07:00 15:00 23:00 07:00 15:00 23:00 Intake Total 2000 ml 480 ml 240 ml Output Total 600 ml 500 ml Balance 2000 ml -120 ml -260 ml Intake Oral 480 ml 240 ml IV Total 2000 ml Output Urine Total 600 ml 500 ml # Bowel Movements 1 Physical Exam GENERAL: SKIN: Warm and dry. HEAD: Normocephalic. EYES: No scleral icterus. No injection or drainage. NECK: Supple, trachea midline. No JVD or lymphadenopathy. CARDIOVASCULAR: Regular rate and rhythm without murmurs, gallops, or rubs. RESPIRATORY: Breath sounds equal bilaterally. No accessory muscle use. GASTROINTESTINAL: Abdomen soft, non-tender, nondistended. MUSCULOSKELETAL: No cyanosis, or edema. BACK: Nontender without obvious deformity. No CVA tenderness. Laboratory Laboratory Tests Test 04/03/17 11:53 04/03/17 16:12 04/03/17 22:39 04/04/17 05:35 White Blood Count 8.1 TH/MM3 7.9 TH/MM3 Red Blood Count 4.53 MIL/MM3 4.04 MIL/MM3 Hemoglobin 13.9 GM/DL 12.6 GM/DL Hematocrit 41.5 % 37.1 % Mean Corpuscular Volume 91.8 FL 91.7 FL Mean Corpuscular Hemoglobin 30.6 PG 31.1 PG Mean Corpuscular Hemoglobin Concent 33.4 % 33.9 % Red Cell Distribution Width 14.0 % 14.2 % Platelet Count 287 TH/MM3 231 TH/MM3 Mean Platelet Volume 9.0 FL 9.8 FL Neutrophils (%) (Auto) 57.4 % 51.7 % Lymphocytes (%) (Auto) 34.4 % 38.9 % Monocytes (%) (Auto) 6.8 % 6.6 % Eosinophils (%) (Auto) 0.9 % 2.4 % Basophils (%) (Auto) 0.5 % 0.4 % Neutrophils # (Auto) 4.6 TH/MM3 4.1 TH/MM3 Lymphocytes # (Auto) 2.8 TH/MM3 3.1 TH/MM3 Monocytes # (Auto) 0.6 TH/MM3 0.5 TH/MM3 Eosinophils # (Auto) 0.1 TH/MM3 0.2 TH/MM3 Basophils # (Auto) 0.0 TH/MM3 0.0 TH/MM3 CBC Comment DIFF FINAL DIFF FINAL Differential Comment Prothrombin Time 11.1 SEC Prothromb Time International Ratio 1.0 RATIO Activated Partial Thromboplast Time 28.8 SEC Blood Urea Nitrogen 16 MG/DL 12 MG/DL Creatinine 0.86 MG/DL 0.81 MG/DL Random Glucose 72 MG/DL 98 MG/DL Total Protein 7.5 GM/DL Albumin 4.0 GM/DL Calcium Level 9.0 MG/DL 7.5 MG/DL Magnesium Level 2.3 MG/DL Alkaline Phosphatase 72 U/L Aspartate Amino Transf (AST/SGOT) 18 U/L Alanine Aminotransferase (ALT/SGPT) 31 U/L Total Bilirubin 0.2 MG/DL Sodium Level 140 MEQ/L 140 MEQ/L Potassium Level 3.8 MEQ/L 3.6 MEQ/L Chloride Level 108 MEQ/L 111 MEQ/L Carbon Dioxide Level 24.0 MEQ/L 23.0 MEQ/L Anion Gap 8 MEQ/L 6 MEQ/L Estimat Glomerular Filtration Rate 74 ML/MIN 79 ML/MIN Total Creatine Kinase 112 U/L 90 U/L 85 U/L Creatine Kinase MB 1.3 NG/ML Troponin I LESS THAN 0.02 NG/ML LESS THAN 0.02 NG/ML LESS THAN 0.02 NG/ML Lipase 104 U/L D-Dimer Quantitative (PE/DVT) 0.32 MG/L FEU Thyroid Stimulating Hormone 3rd Gen 2.550 uIU/ML Triglycerides Level 119 MG/DL Cholesterol Level 112 MG/DL LDL Cholesterol 58 MG/DL HDL Cholesterol 30.1 MG/DL Cholesterol/HDL Ratio 3.72 RATIO Imaging Last 24 hours Impressions Chest X-Ray 04/03/17 1148 Signed Impressions: Service Date/Time: March 12:16 - CONCLUSION: No acute disease. Enrrique Goncalves MD Aorta CTA 04/03/17 1148 Signed Impressions: Service Date/Time: March 12:21 - CONCLUSION: 1. Unremarkable CTA examination without evidence for aortic aneurysm or dissection as questioned. 2. The very central pulmonary arteries are patent. Segmental branches are inadequately opacified for evaluation. 3. Otherwise, no acute findings to explain patient's symptoms. Cornell Plasencia MD Assessment and Plan Assessment and Plan CP - suggestive of esophageal spasm relieved with NTG. no EKG changes. No troponin elevation. symptom free now OK for DC FU PCP for possible EGD. ok to DC with SL NTG PRN for severe spasm will sign off if recurrence, outpatient ETT Sterling Calloway MD Apr 04, 2017 08:34
[2017-04-04] MEDS: INFLUENZA VIRUS VACCINE (QUADRIVALENT) 0.5 ML SYR IM ONE ×2 (08:58→09:38)
[2017-04-04] MEDS ORDERED: PANTOPRAZOLE SOD 40 MG DELAYED RELEASE TAB PO SCH (09:00)
[2017-04-04] MEDS ORDERED: ASPIRIN 81 MG CHEW TAB CHEW SCH (09:00)
--- NOTE | 2017-04-04 09:09 | HHI.DCPOC ---
Discharge Care Plan Diagnosis: (1) Chest pain (2) Heartburn (3) FEN Goals to Promote Your Health * To prevent worsening of your condition and complications * To maintain your health at the optimal level Directions to Meet Your Goals Take your medications as prescribed Follow your dietary instruction Follow activity as directed Keep your appointments as scheduled Take your immunizations and boosters as scheduled If your symptoms worsen call your PCP, if no PCP go to Urgent Care Center or Emergency Room Smoking is Dangerous to Your Health. Avoid second hand smoke Call the 24-hour hour crisis hotline for domestic abuse at Rinku Cortes MD, R3 Apr 04, 2017 09:09
[2017-04-04] MEDS ORDERED: PANT40TA3 PO (09:11)
[2017-04-04 14:43] LABS: HEMOGLOBIN A1b 0.8 %; HEMOGLOBIN Ao 85.7 %; HEMOGLOBIN F 1.2 %; HEMOGLOBIN LA1C 1.8 %; HEMOGLOBIN P3 3.5 %
--- NOTE | 2017-04-04 21:25 | EKG ---
Date Performed: 04/03/2017 Time Performed: 22:00:02 PTAGE: 36 years EKG: Sinus rhythm . Low QRS voltages in precordial leads Borderline ECG PREVIOUS TRACING : 04/03/2017 17.20 Compared to prior tracing no significant change DOCTOR: Joey Prince Interpretating Date/Time 04/04/2017 21:25:36
--- NOTE | 2017-04-04 22:02 | EKG ---
Date Performed: 04/03/2017 Time Performed: 17:20:22 PTAGE: 36 years EKG: Sinus rhythm . Septal T wave changes are nonspecific Borderline ECG PREVIOUS TRACING : 04/03/2017 13.58 Compared to prior tracing no significant change DOCTOR: Joey Prince Interpretating Date/Time 04/04/2017 21:33:22
--- NOTE | 2017-04-04 22:03 | EKG ---
Date Performed: 04/03/2017 Time Performed: 13:11:19 PTAGE: 36 years EKG: Sinus rhythm POSSIBLE RIGHT VENTRICULAR CONDUCTION DELAY BORDERLINE ECG PREVIOUS TRACING : 04/03/2017 13.10 Compared to prior tracing no significant change DOCTOR: Joey Prince Interpretating Date/Time 04/04/2017 21:41:19
--- NOTE | 2017-04-04 22:03 | EKG ---
Date Performed: 04/03/2017 Time Performed: 13:58:34 PTAGE: 36 years EKG: Sinus rhythm POSSIBLE RIGHT VENTRICULAR CONDUCTION DELAY BORDERLINE ECG NO PREVIOUS TRACING DOCTOR: Joey Prince Interpretating Date/Time 04/04/2017 21:40:15
--- NOTE | 2017-04-04 22:03 | EKG ---
Date Performed: 04/03/2017 Time Performed: 11:49:47 PTAGE: 36 years EKG: Sinus rhythm POSSIBLE RIGHT VENTRICULAR CONDUCTION DELAY BORDERLINE ECG NO PREVIOUS TRACING DOCTOR: Joey Prince Interpretating Date/Time 04/07/2017 08:06:42
--- NOTE | 2017-04-04 22:03 | EKG ---
Date Performed: 04/03/2017 Time Performed: 11:26:38 PTAGE: 36 years EKG: Sinus tachycardia. Poor R wave progression - probable normal variant Septal T wave changes are nonspecific Borderline ECG NO PREVIOUS TRACING DOCTOR: Joey Prince Interpretating Date/Time 04/04/2017 21:43:33
== END 2017-04-04 10:43 | disposition home or self-care (01) ==
LOC: NEPC 11:43 → NEDA 13:20 → HCIN 14:45
PROVIDERS: ADMIT Family Medicine; ATTEND Family Medicine
DX: R07.89 Other chest pain (principal); R12 Heartburn; K22.4 Dyskinesia of esophagus; K21.9 Gastro-esophageal reflux disease without esophagitis; R00.0 Tachycardia, unspecified; R06.02 Shortness of breath; R61 Generalized hyperhidrosis
CPT/HCPCS: 71010; 71275; 74174; 80048; 80053; 80061; 82550; 82552; 83036; 83690; 83735; 84443; 84484; 84703; 85025; 85379; 85610; 85730; 93005; 96361; 96374; 96375; 99285; C9113; G0378; J1885; J2270; J2405; J7030; Q9967; 90686; Q2038

== ENCOUNTER 2017-07-22 14:39 | Emergency (ER) | payer OTHER, MEDICAID ==
[~2017-07-22] VITALS: Ht 167.6 cm; Wt 78.0 kg
[~2017-07-22 14:39] MED LIST: FAMO1TAB37 PO; PANT40TA3 PO
[2017-07-22 14:57] VITALS: BP 128/77; PULSE 102; RESP 16; TEMP 97.8; O2SAT 97
[2017-07-22] MEDS ORDERED: ZANT150T2 PO (15:05)
--- NOTE | 2017-07-22 15:42 | PD ---
HPI Chief Complaint: Injury Time Seen by Provider: 15:32 Travel History International Travel<30 days: No Contact w/Intl Traveler<30days: No Traveled to known affect area: No History of Present Illness HPI WHILE WALKING INTO ROOM, THERE WAS A WET SPOT ON STORAGE FLOOR WHERE SHE SLIPPED AND FELL, LANDING ON HER BUTTOCKS AND LEFT UE WAS TRYING TO HOLD ON TO DOOR KNOB AND SO GOT A PULLING MECHANISM ON LEFT SHOULDER (SHARP PAIN, 8/10, UNABLE TO MOVE DUE TO WORSENING PAIN)....LEFT KNEE TWISTED WHILE WEIGHT WAS ON THAT LEG/PLANTED FOOT ON FLOOR (left knee pain, sharp, nonrad, 6/10, worse with weight bearing). PFSH Past Medical History Cancer: No Cardiovascular Problems: No Chemotherapy: No Diminished Hearing: No Endocrine: No Gastrointestinal Disorders: Yes GERD: Yes (GERD) Genitourinary: No Immune Disorder: No Kidney Stones: Yes Musculoskeletal: No Neurologic: No Psychiatric: No Reproductive: No Respiratory: No Radiation Therapy: No ?: Not : 3 Para: 2 Past Surgical History Abdominal Surgery: Yes (Laproscopic Abdominal Procedure) Section: Yes (X 1) Gynecologic Surgery: Yes (C- SECTION) Social History Alcohol Use: Yes (RARE) Tobacco Use: Yes (3/4 PPD) Substance Use: No Allergies-Medications (Allergen,Severity, Reaction): Coded Allergies: latex (Verified Allergy, Severe, Swelling, 07/22/17) Penicillins (Verified Allergy, Intermediate, Hives, 07/22/17) erythromycin base (Verified Allergy, Unknown, HIVES, 07/22/17) hydromorphone (Verified Adverse Reaction, Severe, Nausea/Vomiting, 07/22/17) Reported Meds & Prescriptions Reported Meds & Active Scripts Active Pantoprazole (Pantoprazole Sodium) 40 Mg Tab 40 Mg PO DAILY Reported Zantac (Ranitidine HCl) 150 Mg Tab 150 Mg PO DAILY Review of Systems Except as stated in HPI: all other systems reviewed are Neg Musculoskeletal: Positive: Limited ROM, Pain (LEFT KNEE, LEFT SHOULDER) Physical Exam Narrative GENERAL: SKIN: Warm and dry. HEAD: Atraumatic. Normocephalic. EYES: Pupils equal and round. No scleral icterus. No injection or drainage. ENT: No nasal bleeding or discharge. Mucous membranes pink and moist. NECK: Trachea midline. No JVD. CARDIOVASCULAR: Regular rate and rhythm. RESPIRATORY: No accessory muscle use. Clear to auscultation. Breath sounds equal bilaterally. GASTROINTESTINAL: Abdomen soft, non-tender, nondistended. MUSCULOSKELETAL: Extremities without clubbing, cyanosis, or edema. No obvious deformities. patient hesitant to do any rom testing on shoulder due to severe pain, however no deformity noted, also no open laceration or echymosis noted.....left knee had negative anterior/posterior drawer sign and also negative pain on mcmurrays/jesse/pivot test NEUROLOGICAL: Awake and alert. No obvious cranial nerve deficits. Motor grossly within normal limits. Five out of 5 muscle strength in the arms and legs. Normal speech. PSYCHIATRIC: Appropriate mood and affect; insight and judgment normal. Data Data Last Documented VS Vital Signs Date Time Temp Pulse Resp B/P (MAP) Pulse Ox O2 Delivery O2 Flow Rate FiO2 07/22/17 14:57 97.8 102 16 128/77 (94) 97 Orders Orders Shoulder, Complete (>2vws) (07/22/17 ) Knee, Complete (4vws) (07/22/17 ) Ed Urine Pregnancytest Poc (07/22/17 15:36) Morphine Inj (Morphine Inj) (07/22/17 15:45) Ondansetron Odt (Zofran Odt) (07/22/17 15:45) MDM Medical Decision Making Medical Screen Exam Complete: Yes Emergency Medical Condition: Yes Medical Record Reviewed: Yes Differential Diagnosis FX V DISLOCATION V CONTUSION Narrative Course SIGNED OUT PENDING XRAY RESULTS, AND DISPO Diagnosis Primary Impression: Left shoulder pain Qualified Codes: M25.512 - Pain in left shoulder Additional Impression: Left knee pain Qualified Codes: M25.562 - Pain in left knee Kolton Calhoun MD Jul 22, 2017 15:42
[2017-07-22] MEDS ORDERED: ONDANSETRON ODT 4 MG TAB PO/SL ONE (15:45)
[2017-07-22] MEDS ORDERED: MORPHINE SULFATE 4 MG/ML INJ IM ONE (15:45)
--- NOTE | 2017-07-22 16:58 | RADRPT ---
EXAM DATE/TIME: 07/22/2017 16:18 [facility] COMPARISON: No previous studies available for comparison. INDICATIONS : Left shoulder pain post fall. MEDICAL HISTORY : None. SURGICAL HISTORY : None. ENCOUNTER: Initial ACUITY: 1 day PAIN SCORE: 10/10 LOCATION: Left upper extremity FINDINGS: Multiple view examination of the left shoulder demonstrates no evidence of fracture or dislocation. The glenohumeral and acromioclavicular joints are maintained. There is normal range of motion betwee n internal and external rotation. Bony mineralization is normal. CONCLUSION: No acute disease. Enrrique Goncalves MD on July 22, 2017 at 16:55 Board Certified Radiologist. This report was verified electronically.
--- NOTE | 2017-07-22 17:06 | RADRPT ---
EXAM DATE/TIME: 07/22/2017 16:23 [facility] COMPARISON: No previous studies available for comparison. INDICATIONS : Left medial knee pain post fall. MEDICAL HISTORY : None. SURGICAL HISTORY : None. ENCOUNTER: Initial ACUITY: 1 day PAIN SCORE: 4/10 LOCATION: Left medial knee FINDINGS: Four view examination of the left knee demonstrates no evidence of fracture or dislocation. Bony min eralization is normal. The articular surfaces are intact. The suprapatellar soft tissues have a nor mal configuration. Minimal spurring is noted at the insertion of the quadriceps tendon on the patella . CONCLUSION: No acute fracture or dislocation. Minimal spurring at the insertion of the quadriceps tendon on the p atella. Enrrique Goncalves MD on July 22, 2017 at 17:03 Board Certified Radiologist. This report was verified electronically.
--- NOTE | 2017-07-22 17:59 | PD ---
Physical Exam Narrative Received sign out from previous team to follow up with xray for left knee and left shoulder. 37yo F here with c/o left shoulder and knee pain s/p slip and fall. Xray left knee showed no acute fracture or dislocation. Minimall spurring at insertion of quadriceps tendon on patella. Xray left shoulder showed no acute disease. Pt was given 2mg of morphine and zofran. Pt said it helped a little but still in pain. Pt given ibuprofen. Neurovascular intact in left upper extremity and left lower extremity. +TTP medial left glenohumeral joint. No erythema. Good range of motion in left knee but some ttp inferior medial knee. Pt reevaluated at bedside with improvement of pain. Return precautions given. Data Data Last Documented VS Vital Signs Date Time Temp Pulse Resp B/P (MAP) Pulse Ox O2 Delivery O2 Flow Rate FiO2 07/22/17 14:57 97.8 102 16 128/77 (94) 97 Orders Orders Shoulder, Complete (>2vws) (07/22/17 ) Knee, Complete (4vws) (07/22/17 ) Ed Urine Pregnancytest Poc (07/22/17 15:36) Morphine Inj (Morphine Inj) (07/22/17 15:45) Ondansetron Odt (Zofran Odt) (07/22/17 15:45) Ketorolac Inj (Toradol Inj) (07/22/17 18:00) Ibuprofen (Motrin) (07/22/17 18:15) MDM Supervised Visit with TETO: No Diagnosis Primary Impression: Left shoulder pain Qualified Codes: M25.512 - Pain in left shoulder Additional Impression: Left knee pain Qualified Codes: M25.562 - Pain in left knee Referrals: Greg Perez MD as needed Follow up with pain in left shoulder persists. Patient Instructions: General Instructions Departure Forms: Tests/Procedures, Work Release Enter return to work date: Jul 24, 2017 Additional Instruction: Please follow up with [facility] and possible orthopedic referral if pain persists. Return to the ED if symptoms worsen. Med/Other Pt SpecificInfo: Prescription(s) given Scripts Ibuprofen (Ibuprofen) 600 Mg Tab 600 MG PO Q8HR Y for PAIN, #20 TAB 0 Refills Prov: Liset Simmons DO 07/22/17 Disposition: 01 DISCHARGE HOME Condition: Stable Liset Simmons DO Jul 22, 2017 17:59
[2017-07-22] MEDS ORDERED: KETOROLAC TROMETHAMINE 60 MG/2 ML (IM) VIAL IM ONE (18:00)
[2017-07-22] MEDS ORDERED: IBUP-232 PO (18:07)
[2017-07-22] MEDS ORDERED: IBUPROFEN 600 MG TAB PO ONE (18:15)
== END 2017-07-22 18:55 | disposition home or self-care (01) ==
LOC: NEPD 14:39
DX: M25.512 Pain in left shoulder (principal); M25.562 Pain in left knee; K21.9 Gastro-esophageal reflux disease without esophagitis; F17.200 Nicotine dependence, unspecified, uncomplicated; W01.0XXA Fall on same level from slipping, tripping and stumbling without subsequent striking against object, initial encounter
CPT/HCPCS: 73030; 73564; 84703; 96372; 99283; J2270